=== PATIENT | male | born 1970 | race Caucasian/White ===

== ENCOUNTER 2016-07-26 08:19 | Observation (INO) | payer BC ==
--- NOTE | 2016-07-26 08:45 | PDOC ---
History of Present Illness - General Chief Complaint: Lightheaded Stated Complaint: DIZZINESS Time Seen by Provider: 07/26/16 08:44 History Source: Patient Exam Limitations: No Limitations - History of Present Illness Initial Comments: CHIEF COMPLAINT: 46 y/o afebrile male with no significant PMH BIB EMS for pre- syncopal episode. 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 He states he woke up at 4am, ate cereal and drank coffee and water. He states he felt fine until he was at school around 7am and he started to have tunnel vision. He sat down on a chair and one of his co workers (who is at bedside) admits he was very sweaty. He was given water and crackers and states started to feel better. He states currently he feels back to normal. He does admit being under a tremendous amount of stress lately as his father recently . He denies f/c, CHAMORRO, neck pain, n/v/d, CP, SOB, palpitations, abd pain, back pain, hematuria, dysuria, LOC, head trauma. He denies any strenuous activity yesterday. Vital signs on arrival are notable for pulse of 53. REVIEW OF SYSTEMS: GENERAL/CONSTITUTIONAL: No fever/chills. No weakness. No weight change. HEAD, EYES, EARS, NOSE AND THROAT: +tunnel vision (resolved). No ear pain or discharge. No sore throat. CARDIOVASCULAR: No chest pain or shortness of breath. RESPIRATORY: No cough, wheezing, or hemoptysis. GASTROINTESTINAL: No abd pain, nausea, vomiting, diarrhea, constipation. GENITOURINARY: No dysuria, frequency, or change in urination. MUSCULOSKELETAL: No joint or muscle swelling or pain. No neck or back pain. SKIN: No rash or easy bruising. NEUROLOGIC: +lightheadedness. No headache, loss of consciousness, or loss of sensation. PHYSICAL EXAM: GENERAL: The patient is awake, alert, and fully oriented, in no acute distress. He is well appearing and pleasant. He is not pale or diaphoretic. HEAD: Normal with no signs of trauma. ENT: Pupils equal, round and reactive to light, extraocular movements intact, sclera anicteric, conjunctiva clear. Neck supple. LUNGS: Clear to auscultation bilaterally. Normal excursion. No respiratory distress or use of accessory muscles. CV: RRR, S1/S2, no MRG. Cap refill < 2 sec. ABDOMEN: Soft, non-distended, non-tender even to deep palpation, no hepatomegaly or splenomegaly, no masses. EXTREMITIES: Normal range of motion, no edema. NEUROLOGICAL: Normal speech, normal gait. CN II-XII grossly intact. PSYCH: Normal mood, normal affect. SKIN: Warm, dry, normal turgor, no rashes or lesions noted. Past History - Past Medical History Allergies/Adverse Reactions: Allergies Allergy/AdvReac Type Severity Reaction Status Date / Time dust Allergy Uncoded 07/26/16 08:36 trees Allergy Uncoded 07/26/16 08:36 Home Medications: Ambulatory Orders NK [No Known Home Medication] 07/26/16 Other medical history: denies - Psycho/Social/Smoking Cessation Hx Anxiety: No Suicidal Ideation: No Smoking History: Never smoked Have you smoked in the past 12 months: No Information on smoking cessation initiated: No Hx Alcohol Use: No Drug/Substance Use Hx: No Substance Use Type: None *Physical Exam - Vital Signs Last Vital Signs Temp Pulse Resp BP Pulse Ox 97.8 F 53 L 20 136/64 100 07/26/16 08:30 07/26/16 08:30 07/26/16 08:30 07/26/16 08:30 07/26/16 08:30 Heart Score/ECG Review - History History: Slightly suspicious - Electrocardiogram EKG: Normal - Age Age: 45-65 - Risk Factors Based on the list above the patient has:: 1-2 risk factors - Troponin Troponin: </= normal limit - Score Heart Score - Total: 2 - ECG Intrepretation Comment:: Twelve-lead EKG was performed and reviewed by Dr. Eli. There is sinus bradycardia with sinus arrhythmia. The axis is normal. The intervals are normal. There are no ST or T wave abnormalities. Impression: Otherwise normal twelve-lead EKG ED Treatment Course - LABORATORY CBC & Chemistry Diagram: 07/26/16 08:50 07/26/16 08:50 Medical Decision Making - Medical Decision Making A/P: 46 y/o male with pre syncopal episode today. Suspect vaso vagal. Plan is as follows: 1. EKG 2. Labs 3. Orthostatic vitals 4. IV fluids EKG with sinus hitesh Labs normal Orthostatics ok Spoke with his who informed me that he has had sleep apnea for years that he does not treat. She also admits he has no PCP and has not seen a doctor in a long time. While in the ER the patient had 2 episodes of bradying down to the 30s, and he states during one of those occasions he felt like he "lost a breath". Discussed the case with Dr. Eli and since the patient has no follow up will admit to tele obs for continuous monitoring and Cardiology consult. Spoke with WIL Issa who accepts admission for Dr. Mcqueen. Dr. Casillas was consulted for cardiology. *DC/Admit/Observation/Transfer Diagnosis at time of Disposition: Pre-syncope, Bradycardia with 31-40 beats per minute - Discharge Dispostion Condition at time of disposition: Stable Admit: Yes
[2016-07-26 08:58] VITALS: BMI 29.4
[2016-07-26 09:04] LABS: EOSINOPHIL 5.3 % (0-4.5); MCH 28.9 pg (25.7-33.7); MEAN CELL VOLUME 82.6 fl (80-96); MEAN PLT VOLUME 8.4 fl (7.5-11.1); NEUTROPHILS 53.5 % (42.8-82.8); PLATELET COUNT 162 K/MM3 (134-434); RDW 13.5 % (11.9-15.9); WHITE BLOOD COUNT 6.7 K/mm3 (4.0-10.0)
[2016-07-26] MEDS ORDERED: SODIUM CHLORIDE 1,000 ML IV STA (09:09)
[2016-07-26 09:23] LABS: ALBUMIN 4.2 g/dl (3.4-5.0); ANION GAP 8 (8-16); BILIRUBIN,TOTAL 0.5 mg/dL (0.2-1.0); CALCIUM 8.5 mg/dL (8.5-10.1); CO2 26 mmol/L (21-32); COCKROFT - GAULT 108.01; CREATININE 1.1 mg/dL (0.7-1.3); GLUCOSE,RANDOM 91 mg/dL (74-106); SGOT/AST 26 U/L (15-37); SGPT/ALT 65 U/L (12-78); TOT PROT 7.2 g/dl (6.4-8.2)
[2016-07-26 09:25] LABS: ALK PHOS 90 U/L (45-117); TROPONIN I < 0.02 ng/ml (0.00-0.05)
--- NOTE | 2016-07-26 11:20 | HP ---
CHIEF COMPLAINT: Lightheadedness PCP: None HISTORY OF PRESENT ILLNESS: This is an otherwise healthy 46 year old male who presented to the ED by EMS after he developed lightheadedness, "tunnel vision", and diaphoresis while at work today. Symptoms started after standing up quickly to get a book off of a shelf. He states that he returned to normal after sitting in a chair and having water and crackers; he estimates that lightheadedness lasted about 5 minutes. He denies chest pain, SOB, nausea/ vomiting, or any other symptoms. He reports that BP was around 140 systolic by the school nurse and 160 by EMS. 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 Alcohol: None Drugs: None Family History: Father from pancreatic ca, mother breast/ovarian ca, brother has "heart murmur", no significant family history of cardiac issues Allergies dust Allergy (Uncoded 07/26/16 08:36) trees Allergy (Uncoded 07/26/16 08:36) HOME MEDICATIONS: Home Medications Medication Instructions Recorded NK [No Known Home Medication] 07/26/16 REVIEW OF SYSTEMS CONSTITUTIONAL: Diaphoresis Absent: fever, chills, generalized weakness, malaise, loss of appetite, weight change HEENT: Absent: rhinorrhea, nasal congestion, throat pain, throat swelling, difficulty swallowing, mouth swelling, ear pain, eye pain, visual changes CARDIOVASCULAR: See HPI RESPIRATORY: notes that he seems to "stop breathing" while sleeping and suspects he may have sleep apnea Absent: cough, shortness of breath, dyspnea with exertion, orthopnea, wheezing, stridor, hemoptysis GASTROINTESTINAL: Absent: abdominal pain, abdominal distension, nausea, vomiting, diarrhea, constipation, melena, hematochezia GENITOURINARY: Absent: dysuria, frequency, urgency, hesitancy, hematuria, flank pain, genital pain MUSCULOSKELETAL: Absent: myalgia, arthralgia, joint swelling, back pain, neck pain SKIN: Absent: rash, itching, pallor HEMATOLOGIC/IMMUNOLOGIC: Absent: easy bleeding, easy bruising, lymphadenopathy, frequent infections ENDOCRINE: Absent: unexplained weight gain, unexplained weight loss, heat intolerance, cold intolerance NEUROLOGIC: Absent: headache, focal weakness or paresthesias, dizziness, unsteady gait, seizure, mental status changes, bladder or bowel incontinence PSYCHIATRIC: Absent: anxiety, depression, suicidal or homicidal ideation, hallucinations. PHYSICAL EXAMINATION Vital Signs - 24 hr 07/26/16 07/26/16 07/26/16 08:30 09:19 09:20 Temperature 97.8 F Pulse Rate 53 L Pulse Rate [ 51 L 68 Right Radial] Respiratory 20 20 20 Rate Blood Pressure 136/64 Blood Pressure 131/86 138/90 [Left Arm] O2 Sat by Pulse 100 100 100 Oximetry (%) 07/26/16 09:21 Temperature Pulse Rate Pulse Rate [ 55 L Right Radial] Respiratory 20 Rate Blood Pressure Blood Pressure 138/83 [Left Arm] O2 Sat by Pulse 100 Oximetry (%) GENERAL: Awake, alert, and fully oriented, in no acute distress. HEAD: Normal with no signs of trauma. EYES: Pupils equal, round and reactive to light, extraocular movements intact, sclera anicteric, conjunctiva clear. No lid lag. EARS, NOSE, THROAT: Ears normal, nares patent, oropharynx clear without exudates. Moist mucous membranes. NECK: Normal range of motion, supple without lymphadenopathy, JVD, or masses. LUNGS: Breath sounds equal, clear to auscultation bilaterally. No wheezes, and no crackles. No accessory muscle use. HEART: Regular rate and rhythm, normal S1 and S2 without murmur, rub or gallop. ABDOMEN: Soft, nontender, not distended, normoactive bowel sounds, no guarding, no rebound, no masses. No hepatomegaly or splenomegaly. MUSCULOSKELETAL: Normal range of motion at all joints. No bony deformities or tenderness. No CVA tenderness. UPPER EXTREMITIES: 2+ pulses, warm, well-perfused. No cyanosis. No clubbing. No peripheral edema. LOWER EXTREMITIES: 2+ pulses, warm, well-perfused. No calf tenderness. No peripheral edema. NEUROLOGICAL: Cranial nerves II-XII intact. Normal speech. Normal gait. PSYCHIATRIC: Cooperative. Good eye contact. Appropriate mood and affect. SKIN: Warm, dry, normal turgor, no rashes or lesions noted, normal capillary refill. Laboratory Results - last 24 hr 07/26/16 07/26/16 08:50 08:50 WBC 6.7 RBC 5.05 Hgb 14.6 Hct 41.7 MCV 82.6 MCHC 35.0 RDW 13.5 Plt Count 162 MPV 8.4 Neutrophils % 53.5 Lymphocytes % 31.8 Monocytes % 8.4 Eosinophils % 5.3 H Basophils % 1.0 Sodium 142 Potassium 4.8 Chloride 108 H Carbon Dioxide 26 Anion Gap 8 BUN 16 Creatinine 1.1 Creat Clearance w eGFR > 60 Random Glucose 91 Calcium 8.5 Total Bilirubin 0.5 AST 26 ALT 65 Alkaline Phosphatase 90 Creatine Kinase 55 Troponin I < 0.02 Total Protein 7.2 Albumin 4.2 ASSESSMENT/PLAN: 46 year old male with bradycardia and near syncope. Problem List - Problem (1) Bradycardia with 31-40 beats per minute Assessment/Plan: -Monitor on telemetry -Chest x-ray -Echocardiogram -Serial troponins to rule out OH -Check TSH -Cardiology evaluation Code(s): R00.1 - BRADYCARDIA, UNSPECIFIED (2) Pre-syncope Assessment/Plan: -As above Code(s): R55 - SYNCOPE AND COLLAPSE (3) DVT prophylaxis Assessment/Plan: -Low risk -Ambulation Needs PCP referral and referral for sleep study on dc. Code(s): QFY2922 - Visit type - Emergency Visit Emergency Visit: Yes ED Registration Date: 07/26/16 Care time: The patient presented to the Emergency Department on the above date and was hospitalized for further evaluation of their emergent condition. - New Patient This patient is new to me today: Yes Date on this admission: 07/26/16 - Critical Care Critical Care patient: No
--- NOTE | 2016-07-26 11:28 | PDOC ---
*Physical Exam - Vital Signs Last Vital Signs Temp Pulse Resp BP Pulse Ox 97.8 F 55 L 20 138/83 100 07/26/16 08:30 07/26/16 09:21 07/26/16 09:21 07/26/16 09:21 07/26/16 09:21 ED Treatment Course - LABORATORY CBC & Chemistry Diagram: 07/26/16 08:50 07/26/16 08:50 - ADDITIONAL ORDERS Additional order review: Laboratory Results 07/26/16 08:50 Sodium 142 Potassium 4.8 Chloride 108 H Carbon Dioxide 26 Anion Gap 8 BUN 16 Creatinine 1.1 Creat Clearance w eGFR > 60 Random Glucose 91 Calcium 8.5 Total Bilirubin 0.5 AST 26 ALT 65 Alkaline Phosphatase 90 Creatine Kinase 55 Troponin I < 0.02 Total Protein 7.2 Albumin 4.2 07/26/16 08:50 RBC 5.05 MCV 82.6 MCHC 35.0 RDW 13.5 MPV 8.4 Neutrophils % 53.5 Lymphocytes % 31.8 Monocytes % 8.4 Eosinophils % 5.3 H Basophils % 1.0 Medical Decision Making - Medical Decision Making 07/26/16 11:27 Patient seen and evaluated with the nurse practitioner. I agree with the overall evaluation, assessment, and management with the following summary of visit: 46-year-old male presents with intermittent lightheadedness, normal exam for persistent bradycardia on monitor and sinus on EKG. Labs are within normal limits, but patient was noted to have a symptomatic episode while monitor noted heart rate in the 30s. Has limited access to prompt follow-up, will observe overnight on telemetry. *DC/Admit/Observation/Transfer Diagnosis at time of Disposition: Pre-syncope, Bradycardia with 31-40 beats per minute
--- NOTE | 2016-07-26 11:59 | PN ---
Progress Note (short form) - Note Progress Note: Consult Dictated Probable presyncopal episode secondary to vasovagal episode, possible volume depletion as well Sinus Bradycardia REC: Tele x 24 hours Echo Carotid US Hydrate, check orthostatics, TFTs
[2016-07-26 13:06] LABS: THYROID STIMULATING HORMONE 2.36 uIU/ml (0.358-3.74)
--- NOTE | 2016-07-26 13:14 | CONS ---
DATE OF CONSULTATION: 07/26/2016 REQUESTING PHYSICIAN: Li Mcqueen MD REASON FOR CONSULTATION: For presyncope. 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 Patient has been under a significant amount of stress, emotional distress after losing his father to pancreatic cancer on July 08. He has been feeling sadness and has been under significant stress. He awoke around 4:00 a.m. this morning and had breakfast, and then proceeded to go to his job. He got up from his seated position to grab something from the shelf and felt very lightheaded, developed tunnel vision and was brought to the ER. He denies chest pain, palpitations, and shortness of breath. He had been exercising intermittently while his father was ill to relieve stress and reported no chest pain or any exertional symptoms. PAST MEDICAL HISTORY: Apart from borderline hypertension, he denies any other chronic illnesses. ALLERGIES: He is allergic to DUST and TREES, but has no medication allergies. MEDICATIONS: He takes no chronic medications at home. 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 No alcohol, tobacco, or illicit drugs. FAMILY HISTORY: Negative for sudden cardiac or early CAD. PHYSICAL EXAMINATION: General: No distress, anicteric. Vital signs: Temperature 97.8, pulse 55 and regular, blood pressure 138/83, O2 saturation 100 on room air. Neck: No bruits. Heart: S1, S2 regular, no murmurs. Chest: Clear. Abdomen: Soft, nontender. Extremities: No edema. 2+ carotid and radial pulses. DIAGNOSTIC DATA: EKG showed sinus bradycardia at 53 beats per minute. No acute ST changes. CBC was normal. Electrolytes were normal except for a slightly elevated BUN/ creatinine ratio of 16 to 1 First set of cardiac enzymes was negative. ASSESSMENT: 1. Episode of presyncope, likely vasovagal, possible component of volume depletion. 2. Sinus bradycardia - The degree of bradycardia does not explain the symptoms at this time. PLAN: 1. Telemetry x24 hours to rule out arrhythmia. 2. Echocardiogram to assess ejection fraction. 3. Carotid duplex. 4. Check orthostatics, hydrate, check thyroid function. 4. If workup is negative and patient is able to ambulate with no recurrence of symptoms, would plan for discharge tomorrow morning with outpatient followup. Thank you for the consultation. RUTH ROBINS M.D. CARISSA/[id number]
[2016-07-26] MEDS ORDERED: ACETAMINOPHEN 325 MG TABLET (FP) ONE (14:31)
--- NOTE | 2016-07-26 14:34 | EKG ---
Test Reason : Blood Pressure : / mmHG Vent. Rate : 053 BPM Atrial Rate : 053 BPM P-R Int : 122 ms QRS Dur : 084 ms QT Int : 412 ms P-R-T Axes : 041 045 037 degrees QTc Int : 386 ms SINUS BRADYCARDIA WITH SINUS ARRHYTHMIA OTHERWISE NORMAL ECG NO PREVIOUS ECGS AVAILABLE Confirmed by HUEY COREAS, MURPHY ([id number]) on 07/26/2016 2:34:15 PM Referred By: Confirmed By:MURPHY ARZATE MD
[2016-07-26] MEDS ORDERED: SODIUM CHLORIDE 1,000 ML IV SCH (14:45)
[2016-07-26 16:02] LABS: TROPONIN I < 0.02 ng/ml (0.00-0.05)
[2016-07-26] MEDS ORDERED: IBUPROFEN 600 MG TABLET (FP) PO ONE (20:51)
[2016-07-26] MEDS ORDERED: IBUPROFEN 400 MG TABLET (FP) PO PRN (20:52)
[2016-07-26 21:20] LABS: TROPONIN I < 0.02 ng/ml (0.00-0.05)
[2016-07-26] MEDS ORDERED: IBUPROFEN 600 MG TABLET (FP) PO PRN (21:44)
[2016-07-27 05:55] LABS: URINE APPEARANCE CLEAR; URINE BILIRUBIN NEGATIVE (NEGATIVE); URINE BLOOD NEGATIVE (NEGATIVE); URINE COLOR LTYELLOW; URINE GLUCOSE (UA) NEGATIVE (NEGATIVE); URINE KETONE NEGATIVE (NEGATIVE); URINE LEUK ESTERASE NEGATIVE (NEGATIVE); URINE NITRITE NEGATIVE (NEGATIVE); URINE PROTEIN NEGATIVE (NEGATIVE); URINE UROBILINOGEN NEGATIVE E.U./dl (0.2-1.0)
[2016-07-27 06:04] LABS: URINE MARIJUANA THC NEGATIVE ng/ml (CUTOFF=50)
[2016-07-27 06:13] VITALS: TEMP 98.3
[2016-07-27 08:23] LABS: ALBUMIN 3.8 g/dl (3.4-5.0); ANION GAP 5 (8-16); CALCIUM 8.5 mg/dL (8.5-10.1); CO2 29 mmol/L (21-32); COCKROFT - GAULT 108.01; CREATININE 1.1 mg/dL (0.7-1.3); GLUCOSE,RANDOM 92 mg/dL (74-106); MAGNESIUM 2.1 mg/dL (1.8-2.4); SGOT/AST 22 U/L (15-37); SGPT/ALT 55 U/L (12-78)
[2016-07-27 08:26] LABS: BASOPHIL 0.8 % (0-2.0); EOSINOPHIL 6.2 % (0-4.5); MCH 28.8 pg (25.7-33.7); MCHC 34.8 g/dl (32.0-35.9); MEAN CELL VOLUME 82.8 fl (80-96); MEAN PLT VOLUME 8.5 fl (7.5-11.1); NEUTROPHILS 52.6 % (42.8-82.8); PLATELET COUNT 148 K/MM3 (134-434); RDW 13.7 % (11.9-15.9); WHITE BLOOD COUNT 5.7 K/mm3 (4.0-10.0)
[2016-07-27 08:30] LABS: ALK PHOS 82 U/L (45-117); BILIRUBIN,TOTAL 0.6 mg/dL (0.2-1.0); CHOLESTEROL 148 mg/dL (50-200); LDL CHOLESTEROL (ONLY SJRH) 95 mg/dL (5-100); TOT PROT 6.7 g/dl (6.4-8.2)
--- NOTE | 2016-07-27 09:48 | PN ---
Progress Note, Physician Chief Complaint: Feeling well, no CP, SOB, dizziness TELE: reviewed. NSR with mild sinus hitesh in 50s, high 40s while asleep History of Present Illness: Carotid US: Mild plaque, no stenosis Echo: normal niV fxn with Mild MR and TR. Nl RVSP TSH normal Cardiac enzymes negative x 3 sets - Current Medication List Current Medications: Active Medications Ibuprofen (Motrin -) 600 mg PO Q6H PRN PRN Reason: PAIN Last Admin: 07/26/16 21:00 Dose: 600 mg - Objective Vital Signs: Vital Signs Temperature 98.3 F 07/27/16 05:20 Pulse Rate 57 L 07/27/16 05:20 Respiratory Rate 20 07/27/16 05:20 Blood Pressure 114/74 07/27/16 05:20 O2 Sat by Pulse Oximetry (%) 97 07/27/16 01:10 Constitutional: Yes: No Distress, Calm Eyes: Yes: Conjunctiva Clear Neck: Yes: Supple Cardiovascular: Yes: Regular Rate and Rhythm Respiratory: Yes: CTA Bilaterally Gastrointestinal: Yes: Soft Edema: No Neurological: Yes: Alert, Oriented ...Motor Strength: WNL Labs: CBC, BMP 07/27/16 05:58 07/27/16 05:58 Laboratory Tests 07/26/16 07/26/16 07/26/16 08:50 15:00 20:00 WBC Hgb Plt Count Sodium Potassium BUN Creatinine Creatine Kinase 55 43 46 Troponin I < 0.02 < 0.02 < 0.02 Triglycerides Cholesterol Total LDL Cholesterol TSH 2.36 Opiates Screen Methadone Screen Barbiturate Screen Phencyclidine Screen Ur Amphetamines Screen MDMA (Ecstasy) Screen Benzodiazepines Screen Cocaine Screen U Marijuana (THC) Screen 07/27/16 07/27/16 07/27/16 04:20 05:58 05:58 WBC 5.7 Hgb 14.3 Plt Count 148 Sodium 142 Potassium 4.5 BUN 13 Creatinine 1.1 Creatine Kinase Troponin I Triglycerides 124 Cholesterol 148 Total LDL Cholesterol 95 TSH Opiates Screen Negative Methadone Screen Negative Barbiturate Screen Negative Phencyclidine Screen Negative Ur Amphetamines Screen Negative MDMA (Ecstasy) Screen Negative Benzodiazepines Screen Negative Cocaine Screen Negative U Marijuana (THC) Screen Negative - ....Imaging EKG: Image Reviewed Assessment/Plan IMP: Prescyncopal episode: probable volume depletion, orthostatic Episode of sinus hitesh: ?Vasovagal, ?related to chronic sleep apnea REC: Cardiac enzymes are negative. LV function is normal and RVSP is normal. Tele has not shown any further episodes of significant bradycardia. Plan for ETT today for further CV risk stratification and to assure chronotropic competence. If nl, ok to d/c home later today. He plans to f/u with Dr. Hdz or Dr. Albarado (Cardiology) early next week.
--- NOTE | 2016-07-27 12:05 | TRE ---
Protocol Name : PRETTY Max Work Load (METS*10) : 117 Time In Exercise Phase : 00:10:00 Max. Systolic BP : 150 mmHg Max Diastolic BP : 80 mmHg Max Heart Rate : 166 BPM Max Predicted Heart Rate : 172 BPM Attending Physician : Reason For Termination : Target Heart Rate Achieved Reason for Test : Syncope Stress Protocol : PRETTY Rest HR : 77 BPM PeakEx METs : 11.7 METS Recovery ECG Response (OLD) : Diagnosis : Baseline ecg shows sr. No chest pain or anginal symptoms with exercise. Normal HR and BP response to exercise. No ischemic ecg changes or arrhythmias. Normal exercise stress ECG. Confirmed by MICHELLE BUTLER MD ([id number]) on 07/27/2016 12:05:20 PM
--- NOTE | 2016-07-27 12:05 | DS ---
Physical Exam: SUBJECTIVE: Patient seen and examined. He denies chest pain or shortness of breath He denies any new medications either over the counter or prescribed. He denies feeling lightheaded. OBJECTIVE: I offered patient to assign him a PCP since he does not have one but he is refusing. He states he will have a PCP within two days. He wants to follow up with Dr. Dao Earl (bread oven operator) as an outpatient. Carotid doppler findings show mild thickening, plaque: patient is refusing to start Lipitor when I offered to call it in to his pharmacy. States he will follow up with PCP and bread oven operator. Sleep study as outpatient recommended to patient. Vital Signs Period Temp Pulse Resp BP Sys/Chan Pulse Ox Last 24 Hr 97.7 F-98.3 F 50-60 18-20 114-129/74-80 97-98 PHYSICAL EXAM GENERAL: The patient is awake, alert, and fully oriented, in no acute distress. HEAD: Normal with no signs of trauma. EYES: PERRL, extraocular movements intact, sclera anicteric, conjunctiva clear. ENT: Ears normal, nares patent, oropharynx clear without exudates, moist mucous membranes. NECK: Trachea midline, full range of motion, supple. LUNGS: Breath sounds equal, clear to auscultation bilaterally, no wheezes, no crackles, no accessory muscle use. HEART: Regular rate and rhythm, Sinus rhythm on tool profiling machine set up operator: EKG 07/26/16> sinus bradycardia with sinus arrhythmia ABDOMEN: Soft, nontender, nondistended, normoactive bowel sounds, no guarding, no rebound, no hepatosplenomegaly, no masses. EXTREMITIES: 2+ pulses, warm, well-perfused, no edema. NEUROLOGICAL: Normal speech, gait not observed. PSYCH: Normal mood, normal affect. SKIN: Warm, dry, normal turgor, no rashes or lesions noted. LABS Laboratory Results - last 24 hr 07/26/16 07/26/16 07/27/16 15:00 20:00 04:20 WBC RBC Hgb Hct MCV MCHC RDW Plt Count MPV Neutrophils % Lymphocytes % Monocytes % Eosinophils % Basophils % Sodium Potassium Chloride Carbon Dioxide Anion Gap BUN Creatinine Creat Clearance w eGFR Random Glucose Calcium Magnesium Total Bilirubin AST ALT Alkaline Phosphatase Creatine Kinase 43 46 Troponin I < 0.02 < 0.02 Total Protein Albumin Triglycerides Cholesterol Total LDL Cholesterol HDL Cholesterol Urine Color Ltyellow Urine Appearance Clear Urine pH 5.0 Ur Specific [place] 1.013 Urine Protein Negative Urine Glucose (UA) Negative Urine Ketones Negative Urine Blood Negative Urine Nitrite Negative Urine Bilirubin Negative Urine Urobilinogen Negative Ur Leukocyte Esterase Negative Opiates Screen Methadone Screen Barbiturate Screen Phencyclidine Screen Ur Amphetamines Screen MDMA (Ecstasy) Screen Benzodiazepines Screen Cocaine Screen U Marijuana (THC) Screen 07/27/16 07/27/16 07/27/16 04:20 05:58 05:58 WBC 5.7 RBC 4.94 Hgb 14.3 Hct 40.9 MCV 82.8 MCHC 34.8 RDW 13.7 Plt Count 148 MPV 8.5 Neutrophils % 52.6 Lymphocytes % 33.2 Monocytes % 7.2 Eosinophils % 6.2 H Basophils % 0.8 Sodium 142 Potassium 4.5 Chloride 108 H Carbon Dioxide 29 Anion Gap 5 L BUN 13 Creatinine 1.1 Creat Clearance w eGFR > 60 Random Glucose 92 Calcium 8.5 Magnesium 2.1 Total Bilirubin 0.6 AST 22 ALT 55 Alkaline Phosphatase 82 Creatine Kinase Troponin I Total Protein 6.7 Albumin 3.8 Triglycerides 124 Cholesterol 148 Total LDL Cholesterol 95 HDL Cholesterol 32 L Urine Color Urine Appearance Urine pH Ur Specific [place] Urine Protein Urine Glucose (UA) Urine Ketones Urine Blood Urine Nitrite Urine Bilirubin Urine Urobilinogen Ur Leukocyte Esterase Opiates Screen Negative Methadone Screen Negative Barbiturate Screen Negative Phencyclidine Screen Negative Ur Amphetamines Screen Negative MDMA (Ecstasy) Screen Negative Benzodiazepines Screen Negative Cocaine Screen Negative U Marijuana (THC) Screen Negative HOSPITAL COURSE: Date of Admission:07/26/16 Date of Discharge: 07/27/16 Patient is a 46 year old male with a past medical history of Arthroscopic left knee, sinus polyps, colon polyps and anal fissure. He presented to the ER on with complaints of feeling very lightheaded and feeling like he was about to pass out with diaphoresis. He states currently he feels back to normal. His family at the bedside states that he has been under a great deal of stress as his father recently 2 weeks ago. On exam he denies headache, neck pain, lightheadedness, shortness of breath, palpitations or chest pain. He denies taking any new medications. In the ER his heart rate was reported to be between 30s and 40s. Imaging: EKG 07/26/2016: sinus bradycardia with sinus arrhythmia Carotid doppler 07/26/2016: shows mid initmal thickening of right common carotid bifurcation - extending to the external carotid artery w/o evidence of hemodynamic stenosis Echo 07/27/2016: mild-mod. regurg., mild to mod tricuspid regurg. Cardiology: Lightheadedness - resolved Assessment/Plan: Troponins negative x 3 Carotid doppler shows mid initmal thickening of right common carotid bifurcation - extending to the external carotid artery w/o evidence of hemodynamic stenosis stress test reviewed by bread oven operator and pt is cleared for d/c EKG 07/26/2016: sinus bradycardia with sinus arrhythmia Likely a vasovagal episode Needs follow up with bread oven operator as an outpatient as well as a sleep study PCP will not be referred as pt is refusing a PCP assignment. Disposition: Patient cleared by cardiology for discharge. Patient is refusing a PCP assignment and wants to see his family's bread oven operator (Dr. Dao Earl). He states he will have a PCP within 2 days and will follow up on starting a statin until then. Full code. Minutes to complete discharge: 60 Discharge Summary Reason For Visit: PRE SYNCOPE,BRADYCARDIA WITH 31-40 BEATS PER MINUT Current Active Problems Bradycardia with 31-40 beats per minute (Acute) DVT prophylaxis (Acute) Pre-syncope (Acute) Condition: Stable - Instructions Diet, Activity, Other Instructions: As discussed, please follow up with Dr Dao Earl (bread oven operator). Will assign you a PCP, as none is indicated on your records. Please return to the ER with persistent or worsening symptoms. Please follow up with your primary care physician for a sleep study. Disposition: HOME - Home Medications Comprehensive Discharge Medication List: Ambulatory Orders NK [No Known Home Medication] 07/26/16 This patient is new to me today: Yes Date on this admission: 07/27/16 Emergency Visit: Yes ED Registration Date: 07/26/16 Care time: The patient presented to the Emergency Department on the above date and was hospitalized for further evaluation of their emergent condition. Critical Care patient: No - Discharge Referral Referred to [facility] No
[2016-07-27 12:09] VITALS: BP 131/82; PULSE 67
== END 2016-07-27 12:29 | disposition home or self-care (01) ==
LOC: JER 08:19 → JERBED 11:03 → J4W 07-27 00:58
PROVIDERS: ADMIT Internal Medicine; ATTEND Nurse Practitioner Family
PROC: 3E0337Z Introduction of Electrolytic and Water Balance Substance into Peripheral Vein, Percutaneous Approach (ICD-10-PCS; principal; 2016-07-26)
DX: R00.1 Bradycardia, unspecified (principal); R55 Syncope and collapse
CPT/HCPCS: 36415; 71020-TC; 80053; 80061; 80307; 81003; 82550; 83721; 83735; 84443; 84484; 85025; 93005; 93010; 93017; 93018; 93306-TC; 93880-TC; 99285-25; G0378